=== PATIENT | female | born 1960 | race Caucasian/White ===

== ENCOUNTER 2017-03-04 14:11 | Emergency (ER) | payer OTHER ==
[~2017-03-04] VITALS: Ht 152.4 cm; Wt 58.0 kg
[2017-03-04 14:13] VITALS: BP 130/76; PULSE 100; RESP 20; TEMP 98.5; O2SAT 93
--- NOTE | 2017-03-04 15:19 | PD ---
HPI Chief Complaint: Medical Clearance Time Seen by Provider: 14:54 Travel History International Travel<30 days: No Contact w/Intl Traveler<30days: No Traveled to known affect area: No History of Present Illness HPI 57-year-old female patient presents to emergency department for medical clearance after daughter became concerned that she made suicidal type comments last night. The comments were nonspecific and patient states that she does not remember making them. Patient is status post liver transplant and continuing to abuse alcohol. Patient does become tearful during exam and states she has been battling depression since moving here from [place]. She has only been in [place] couple months. She is still followed by her a physician in [place] for her transplant status and for refills of her immunosuppressant pharmaceuticals. Patient states she has been taking her medication as prescribed. Patient denies any chest pain, shortness breath, abdominal pain, nausea, vomiting or diarrhea. Patient states she bruises easily. Patient denies any urinary symptoms. Patient denies any fevers, chills, malaise. PFSH Past Medical History Diabetes: Yes Social History Alcohol Use: Yes Tobacco Use: Yes Substance Use: No Allergies-Medications (Allergen,Severity, Reaction): Coded Allergies: ciprofloxacin (Verified Allergy, Intermediate, hives, 03/04/17) lisinopril (Verified Allergy, Unknown, itching, 03/04/17) nadolol (Verified Allergy, Unknown, hives, 03/04/17) Reported Meds & Prescriptions Reported Meds & Active Scripts Active Reported Lorazepam 0.5 Mg Tab 0.5 Mg PO DAILY PRN Aspirin 81 Mg Chew 81 Mg PO DAILY Atorvastatin (Atorvastatin Calcium) 20 Mg Tab 20 Mg PO HS Metoprolol Tartrate 25 Mg Tab 25 Mg PO BID Mycophenolate (Mycophenolate Mofetil) 250 Mg Cap 500 Mg PO BID Sirolimus 1 Mg Tab 1 Mg PO DAILY Lasix (Furosemide) 40 Mg Tab 40 Mg PO DAILY Tradjenta (Linagliptin) 5 Mg Tab 5 Mg PO DAILY Review of Systems Except as stated in HPI: all other systems reviewed are Neg Physical Exam Narrative GENERAL: Well-nourished well-developed 57-year-old female sitting on side of stretcher crying quietly SKIN: Focused skin assessment warm/dry. Multiple bruises on bilateral upper extremities, abdomen and lower cavities noted HEAD: Atraumatic. Normocephalic. EYES: Pupils equal and round. No scleral icterus. No injection or drainage. ENT: No nasal bleeding or discharge. Mucous membranes pink and moist. NECK: Trachea midline. No JVD. CARDIOVASCULAR: Regular rate and rhythm. No murmur appreciated. RESPIRATORY: No accessory muscle use. Clear to auscultation. Breath sounds equal bilaterally. GASTROINTESTINAL: Abdomen distended, round and firm. Scar from liver transplant noted across abdomen. MUSCULOSKELETAL: No obvious deformities. No clubbing. No cyanosis. Trace non- pitting pedal edema noted. NEUROLOGICAL: Awake and alert. No obvious cranial nerve deficits. Motor grossly within normal limits. Normal speech. PSYCHIATRIC: Crying quietly. Cooperative with history and exam. Data Data Last Documented VS Vital Signs Date Time Temp Pulse Resp B/P (MAP) Pulse Ox O2 Delivery O2 Flow Rate FiO2 03/04/17 18:45 98.1 94 18 125/68 (87) 95 Room Air Orders Orders Complete Blood Count With Diff (03/04/17 15:03) Comprehensive Metabolic Panel (03/04/17 15:03) Prothrombin Time / Inr (Pt) (03/04/17 15:03) Act Partial Throm Time (Ptt) (03/04/17 15:03) Urinalysis - C+S If Indicated (03/04/17 15:03) Iv Access Insert/Monitor (03/04/17 15:03) Ecg Monitoring (03/04/17 15:03) Electrocardiogram (03/04/17 15:03) Sirolimus, Blood (03/04/17 15:19) Psych Screen (03/04/17 15:34) Potassium Chloride (Kcl) (03/04/17 16:30) Diet Regular Basic (03/04/17 Dinner) Labs Laboratory Tests Test 03/04/17 15:00 03/04/17 15:10 White Blood Count 5.4 TH/MM3 Red Blood Count 3.84 MIL/MM3 Hemoglobin 13.2 GM/DL Hematocrit 39.3 % Mean Corpuscular Volume 102.3 FL Mean Corpuscular Hemoglobin 34.4 PG Mean Corpuscular Hemoglobin Concent 33.7 % Red Cell Distribution Width 14.8 % Platelet Count 154 TH/MM3 Mean Platelet Volume 8.4 FL Neutrophils (%) (Auto) 46.1 % Lymphocytes (%) (Auto) 34.8 % Monocytes (%) (Auto) 16.4 % Eosinophils (%) (Auto) 1.6 % Basophils (%) (Auto) 1.1 % Neutrophils # (Auto) 2.5 TH/MM3 Lymphocytes # (Auto) 1.9 TH/MM3 Monocytes # (Auto) 0.9 TH/MM3 Eosinophils # (Auto) 0.1 TH/MM3 Basophils # (Auto) 0.1 TH/MM3 CBC Comment DIFF FINAL Differential Comment Prothrombin Time 11.2 SEC Prothromb Time International Ratio 1.0 RATIO Activated Partial Thromboplast Time 25.9 SEC Urine Color LIGHT-YELLOW Urine Turbidity HAZY Urine pH 6.0 Urine Specific [place]ada 1.006 Urine Protein 100 mg/dL Urine Glucose (UA) NEG mg/dL Urine Ketones NEG mg/dL Urine Occult Blood TRACE Urine Nitrite NEG Urine Bilirubin NEG Urine Urobilinogen LESS THAN 2.0 MG/DL Urine Leukocyte Esterase MOD Urine RBC 4 /hpf Urine WBC 2 /hpf Urine Squamous Epithelial Cells 1 /hpf Microscopic Urinalysis Comment CULT NOT INDICATED Blood Urea Nitrogen 9 MG/DL Creatinine 1.07 MG/DL Random Glucose 105 MG/DL Total Protein 7.9 GM/DL Albumin 3.6 GM/DL Calcium Level 8.9 MG/DL Alkaline Phosphatase 257 U/L Aspartate Amino Transf (AST/SGOT) 172 U/L Alanine Aminotransferase (ALT/SGPT) 73 U/L Total Bilirubin 0.7 MG/DL Sodium Level 139 MEQ/L Potassium Level 2.9 MEQ/L Chloride Level 100 MEQ/L Carbon Dioxide Level 26.7 MEQ/L Anion Gap 12 MEQ/L Estimat Glomerular Filtration Rate 53 ML/MIN MDM Medical Decision Making Medical Screen Exam Complete: Yes Emergency Medical Condition: Yes Medical Record Reviewed: Yes Differential Diagnosis Depression versus alcohol abuse versus delirium versus liver transplant failure Narrative Course 57-year-old female patient presents to emergency department for medical clearance after daughter became concerned about statements made by the patient last night. The daughter was concerned they were suicidal. This statements were nonspecific and the patient denies remember saying them. However the patient is crying during the exam and states she's been very depressed since moving here from [place] a couple months ago. Patient denies any suicidal or homicidal ideations. Patient is status post liver transplant and continuing to mitchell her alcohol addiction. Her abdomen is distended, firm and round. Patient denies abdominal pain, nausea, vomiting or diarrhea. Patient denies chest pain, shortness of breath, fevers, weakness, chills, malaise. EKG, CBC, CMP, PT/INR, sirolimus level and UA ordered and pending EKG shows sinus rhythm with heart rate 95, CBC shows no acute abnormality, CMP shows hypokalemia at 2.9 and elevated liver enzymes, PT/INR shows no acute abnormality SIROLIMUS [-], UA as no acute abnormality 30 mEq by mouth potassium ordered for her hypokalemia. Sirolimus still pending. Patient medically cleared at this time. Awaiting psych eval. RN from psychiatric emergency department called stating patient wants to leave. Patient is denying any homicidal or suicidal ideations. Patient states she would like resources for depression and alcoholism. Patient will be discharged home with instructions to return with any emergent problems. Patient will be given resources for depression and alcoholism. Diagnosis Primary Impression: Depression Additional Impression: Alcohol abuse Referrals: [facility] Patient Instructions: Abuse of Alcohol (ED), General Instructions Additional Instructions: Please follow up Mr. Manzanares for alcoholism. Return to the emergency department with other emergent conditions. Disposition: 01 DISCHARGE HOME Condition: Stable JarrettTarsha cope Kati SEBASTIAN Mar 04, 2017 15:19
[2017-03-04] MEDS ORDERED: METO25TA3 PO (15:34)
[2017-03-04] MEDS ORDERED: MYCO250C PO (15:34)
[2017-03-04] MEDS ORDERED: SIRO1TAB3 PO (15:34)
[2017-03-04] MEDS ORDERED: LORA-373 PO (15:34)
[2017-03-04] MEDS ORDERED: ATOR20TA15 PO (15:34)
[2017-03-04] MEDS ORDERED: ASPI81CH PO (15:34)
[2017-03-04] MEDS ORDERED: TRAD5TAB PO (15:34)
[2017-03-04] MEDS ORDERED: FURO1TAB60 PO (15:34)
[2017-03-04 15:35] LABS: AUTOMATED NEUTROPHIL # 2.5 TH/MM3 (1.8-7.7); BASOPHIL # 0.1 TH/MM3 (0-0.2); BASOPHIL % 1.1 % (0.0-2.0); EOSINOPHIL # 0.1 TH/MM3 (0-0.4); EOSINOPHIL % 1.6 % (0.0-4.0); HEMATOCRIT 39.3 % (35.0-46.0); HEMO FLAGS DIFF FINAL; LYMPH % 34.8 % (9.0-44.0); LYMPHOCYTE # 1.9 TH/MM3 (1.0-4.8); MEAN CELL VOLUME 102.3 FL (80.0-100.0); MEAN CORPUSCULAR HEMOGLOBIN 34.4 PG (27.0-34.0); MEAN CORPUSCULAR HGB CONC 33.7 % (32.0-36.0); MONO % 16.4 % (0.0-8.0); NEUT % 46.1 % (16.0-70.0); PLATELET COUNT 154 TH/MM3 (150-450); RED BLOOD COUNT 3.84 MIL/MM3 (4.00-5.30); RED CELL DISTRIBUTION WIDTH 14.8 % (11.6-17.2); WHITE BLOOD COUNT 5.4 TH/MM3 (4.0-11.0)
[2017-03-04 15:43] LABS: BLOOD, URINE TRACE (NEG); COMMENT (UR) CULT NOT INDICATED; CULTURE IF INDICATED CULT NOT INDICATED; GLUCOSE,URINE NEG (NEG); KETONE, URINE NEG (NEG); NITRITE,URINE NEG (NEG); SQUAMOUS EPITHELIAL CELL URINE 1 /hpf (0-5); URINE COLOR LIGHT-YELLOW (YELLW/STRAW)
[2017-03-04 15:45] LABS: APTT (PATIENT) 25.9 SEC (24.3-30.1); PROTHROMBIN TIME - PATIENT 11.2 SEC (9.8-11.6)
[2017-03-04 16:09] LABS: ALKALINE PHOSPHATASE 257 U/L (45-117); ALT (GPT) 73 U/L (10-53); ANION GAP 12 MEQ/L (5-15); AST (GOT) 172 U/L (15-37); BICARBONATE 26.7 MEQ/L (21.0-32.0); BLOOD UREA NITROGEN 9 MG/DL (7-18); CHLORIDE 100 MEQ/L (98-107); GLOMERULAR FILTRATION RATE 53 ML/MIN (>89); SODIUM (NA) 139 MEQ/L (136-145); TOTAL BILIRUBIN ADULT 0.7 MG/DL (0.2-1.0)
[2017-03-04 16:22] LABS: POTASSIUM 2.9 MEQ/L (3.5-5.1)
[2017-03-04] MEDS ORDERED: POTASSIUM CHLORIDE 10 MEQ CONTROLLED RELEASE TAB PO ONE (16:30)
[2017-03-04 18:05] VITALS: BP 124/81; TEMP 97.8
[2017-03-04 18:45] VITALS: BP 125/68; PULSE 94; RESP 18; TEMP 98.1; O2SAT 95
--- NOTE | 2017-03-05 17:25 | EKG ---
Date Performed: 03/04/2017 Time Performed: 15:23:56 PTAGE: 57 years EKG: Sinus rhythm INFERIOR MYOCARDIAL INFARCTION CONSIDER INFERIOR IA AGE UNDETERMINATE ABNORMAL ECG NO PREVIOUS TRACING DOCTOR: Dylan Wood Interpretating Date/Time 03/05/2017 17:24:02
== END 2017-03-04 19:36 | disposition home or self-care (01) ==
LOC: NEPE 14:11 → NEPJ 19:36
DX: F32.9 Major depressive disorder, single episode, unspecified (principal); F10.20 Alcohol dependence, uncomplicated; R94.31 Abnormal electrocardiogram [ECG] [EKG]; Z72.0 Tobacco use; Z94.4 Liver transplant status
CPT/HCPCS: 80053; 80195; 81001; 85025; 85610; 85730; 93005; 99284